=== PATIENT | female | born 1970 | race Caucasian/White ===

== ENCOUNTER → 2016-06-08 | Outpatient (CLI) | payer OTHER ==
--- NOTE | 2016-06-08 10:46 | REPMRS ---
Patient History The patient states she had a clinical breast exam in July 2015. Patient had first child at age 31. Family history of breast cancer in mother at age 82 and colorectal cancer in 2 other mothers at age 50 or over. Taking hormonal contraceptives for 2 years. Digital Mammo Screening Bilat: June 08, 2016 - Exam #: [id number] Bilateral CC and MLO view(s) were taken. Technologist: Estephania Lopez, Technologist Prior study comparison: September 06, 2014, bilateral digital mammo screening bilat performed at [facility]. October 13, 2012, bilateral digital mammo screening bilat performed at [facility]. August 15, 2011, bilateral digital mammo screening bilat performed at [facility]. FINDINGS: There are scattered fibroglandular densities. There has been no change in the appearance of the mammogram from the prior studies. There is a mild amount of scattered fibroglandular density which is fairly symmetric. There is no interval development of dominant mass, architectural distortion, or clustered microcalcification suggestive of malignancy. ASSESSMENT: BI-RADS/ACR category 1 mammogram. Negative. Recommendation Routine screening mammogram in 1 year (for women over age 40). This mammogram was interpreted with the aid of an FDA-approved computer-aided dectection system. Electronically Signed By: Cullen Us MD 06/08/16 0644
== END ==
LOC: M RAD 10:29
PROVIDERS: ATTEND Nurse Practitioner Women's Health
DX: Z12.31 Encounter for screening mammogram for malignant neoplasm of breast (principal); Z79.3 Long term (current) use of hormonal contraceptives

== ENCOUNTER → 2017-03-07 | Outpatient (CLI) | payer OTHER ==
--- NOTE | 2017-03-08 09:12 | REP ---
Maxillofacial CT study without contrast: History: Chronic sinusitis. No comparison imaging. Findings: The left maxillary sinus is completely opacified and filled with largely hyperattenuating material surrounded by a hypo attenuating rim of mucosal thickening. There is some expansion visible along the medial wall of the left maxillary sinus. There is extensive opacification of a similar nature in the left ethmoid air cells. Partial opacity is seen in the left frontal sinus. The right maxillary sinus is clear. The right ostiomeatal complex is patent. The naso-ethmoid recesses are obscured by mucosal thickening, left more so than right. The left ostiomeatal complex is obscured. The uncinate process is not resolved. No intraorbital mass effect or inflammatory change is seen. No intracranial abnormality. Impression: Significant sinusitis changes are noted in the left maxillary and left ethmoid air cells. The high attenuation content in the maxillary sinus and the mild expansile changes suggest the possibility of allergic fungal sinusitis. Signed by Johnson Us MD 03/08/2017 02:54 P
== END ==
LOC: M RAD 17:08
PROVIDERS: ATTEND Physician Assistant
DX: J32.9 Chronic sinusitis, unspecified (principal)

== ENCOUNTER → 2017-10-11 | Outpatient (CLI) | payer OTHER | LOC: M RAD 14:36 | DX: Z12.31 Encounter for screening mammogram for malignant neoplasm of breast (principal) ==

== ENCOUNTER → 2020-03-22 | Outpatient (CLI) | payer OTHER | LOC: M WHC 15:33 | PROVIDERS: ATTEND Nurse Practitioner Women's Health | DX: Z12.31 Encounter for screening mammogram for malignant neoplasm of breast (principal); Z53.9 Procedure and treatment not carried out, unspecified reason ==

== ENCOUNTER → 2020-04-28 | Outpatient (CLI) | payer OTHER ==
--- NOTE | 2020-04-28 16:40 | REPMRS ---
Patient History The patient states she had a clinical breast exam in 04/2020. Patient had first child at age 31. Family history of breast cancer at age 82 and colorectal cancer at age 82 in mother, prostate cancer at age 55 in father, breast cancer at age 62 in sister. Took hormonal contraceptives for 4 years. Digital Woman Screen Mammo: April 28, 2020 - Exam #: [id number] Bilateral CC and MLO view(s) were taken. Technologist: Brenda Flannery, Technologist Prior study comparison: October 11, 2017, bilateral digital mammo screening bilat, performed at [facility]. June 08, 2016, bilateral digital mammo screening bilat, performed at [facility]. September 06, 2014, bilateral digital mammo screening bilat, performed at [facility]. FINDINGS: There are scattered fibroglandular densities. The Volpara volumetric breast density category is:B. There has been no change in the appearance of the mammogram from the prior studies. There is a mild amount of scattered fibroglandular density which is fairly symmetric. There is no interval development of dominant mass, architectural distortion, or grouped microcalcification suggestive of malignancy. 3-D tomosynthesis shows no additional findings. Assessment: BI-RADS/ACR category 1 mammogram. Negative Mammogram. Recommendation Breast MRI of both breasts in 6 months. Routine screening mammogram of both breasts in 1 year (for women over age 40). This patient's [facility] Lifetime Breast Cancer Risk is estimated at 27.2 %. Annual screening Breast MRI scanniing is recommended for patient's whose lifetime risk assessment is over 20%. This mammogram was interpreted with the aid of an FDA-approved computer-aided dectection system. Electronically Signed By: Cullen Us MD 04/28/20 1640
== END ==
LOC: M WHC 15:05
PROVIDERS: ATTEND Nurse Practitioner Women's Health
DX: Z12.31 Encounter for screening mammogram for malignant neoplasm of breast (principal); Z80.3 Family history of malignant neoplasm of breast; Z80.0 Family history of malignant neoplasm of digestive organs; Z80.42 Family history of malignant neoplasm of prostate; Z92.0 Personal history of contraception

== ENCOUNTER → 2020-04-28 | Outpatient (REF) | payer OTHER | LOC: M SFHCWAGY 17:21 | PROVIDERS: ATTEND Nurse Practitioner Women's Health | DX: Z12.4 Encounter for screening for malignant neoplasm of cervix (principal) ==

== ENCOUNTER → 2020-10-20 | Outpatient (CLI) | payer OTHER ==
[~2020-10-20] MED LIST: PROHANCE 279.3MG/ML 15ML VIAL As Ordered ONE
--- NOTE | 2020-10-21 09:47 | REP ---
INDICATION: FAM HX OF BREAST CA, DENSE BREASTS. COMPARISON: Mammogram 04/28/2020. TECHNIQUE: Three Carmela MRI imaging was performed with a dedicated breast coil. Axial, coronal, and sagittal T1 and T2 weighted scans were obtained with and without fat saturation in the usual fashion. The study includes dynamically acquired post gadolinium-enhanced imaging with image subtraction. Maximum intensity projection and multi planar reformation imaging is included as well. This study is interpreted with the aid of [employer] an FDA approved computer aided detection (CAD) software program, on a dedicated breast MRI workstation. The gadolinium enhancement dose is 14 mL of intravenous ProHance. FINDINGS: There is mild scattered fibroglandular tissue symmetrically bilaterally. There is no axillary adenopathy. There is no significant cystic change in either breast. There is mild background parenchymal enhancement bilaterally. There is no suspicious enhancing mass or morphologic abnormality. IMPRESSION: BI-RADS category 1, negative bilateral breast MRI. No suspicious enhancing mass or morphologic abnormality. Yearly supplemental screening MRI of the breasts is recommended for patients with an elevated lifetime risk of breast cancer of 20% or greater, in addition to annual screening mammography, staggered every 6 months. <Electronically signed by Joshua Jennings > 10/21/20 4637
== END ==
LOC: M RAD 15:04
PROVIDERS: ATTEND Nurse Practitioner Women's Health
DX: R92.2 Inconclusive mammogram (principal); Z91.89 Other specified personal risk factors, not elsewhere classified; Z80.3 Family history of malignant neoplasm of breast
CPT/HCPCS: A9576; C8908

== ENCOUNTER → 2023-07-12 | Outpatient (CLI) | payer OTHER | LOC: M PLAIMG 13:12 | PROVIDERS: ATTEND Internal Medicine | DX: Z80.3 Family history of malignant neoplasm of breast (principal) ==

== ENCOUNTER → 2024-01-22 | Outpatient (REF) | payer OTHER ==
[2024-01-22 17:55] LABS: FOLLICLE STIMULATING HORMONE 54.9 mIU/ML
[2024-01-22 17:56] LABS: LUTEINIZING HORMONE 43.3 mIU/ML
== END ==
LOC: M LAB REF 16:46
PROVIDERS: ATTEND Internal Medicine
DX: N95.8 Other specified menopausal and perimenopausal disorders (principal); Z80.3 Family history of malignant neoplasm of breast

== ENCOUNTER → 2024-05-14 | Outpatient (CLI) | payer OTHER | LOC: M RAD 13:52 | PROVIDERS: ATTEND Internal Medicine | DX: N95.8 Other specified menopausal and perimenopausal disorders (principal) ==

== ENCOUNTER → 2024-05-26 | Outpatient (REF) | payer OTHER | LOC: M SFHCWAGY 10:09 | PROVIDERS: ATTEND Specialist | DX: N95.0 Postmenopausal bleeding (principal); Z12.4 Encounter for screening for malignant neoplasm of cervix ==